=== PATIENT | female | born 1965 | race Asian ===

== ENCOUNTER 2017-09-22 22:39 | Emergency (ER) | payer SELFPAY ==
[~2017-09-22] VITALS: Ht 167.6 cm; Wt 49.0 kg
[~2017-09-22 22:39] MED LIST: ALBU8.5H5 IH; BACTDS PO; BEN50 PO; CEPH-443 PO; CLIN-73 PO; EPIN0.3P4 INJ; HYDR-3498 PO; LEVO50TA71 PO; METF500T4 PO; NAPR-688 PO; OMEP40CA6 PO; SIMV20TA2 PO
[2017-09-22 23:18] VITALS: Ht 167.6 cm; Wt 49.0 kg
== END 2017-09-23 15:26 | disposition left against medical advice (07) ==
LOC: FTE 22:39
DX: Z53.21 Procedure and treatment not carried out due to patient leaving prior to being seen by health care provider (principal)

== ENCOUNTER 2018-02-28 22:00 | Emergency (ER) | END 2018-03-01 00:32 | disposition home or self-care (01) ==

== ENCOUNTER 2018-10-05 05:30 | Inpatient (IN) | payer OTHER ==
[~2018-10-05] VITALS: Ht 154.9 cm; Wt 50.3 kg
[2018-10-05] VITALS (24 sets, daily range): BP systolic 123–159; BP diastolic 44–80; PULSE 82–114; RESP 10–20; Ht 154.9 cm; Wt 50.3 kg
[~2018-10-05 05:30] MED LIST changes: -CLIN-73 PO; +CLIN300C10 PO; +METF500T24 PO; -METF500T4 PO
[2018-10-05] MEDS ORDERED: ADV10050 INHALATION (06:46)
[2018-10-05] MEDS ORDERED: TRAM50TA PO (06:47)
[2018-10-05] MEDS ORDERED: SIMV20TA PO (06:47)
[2018-10-05] MEDS ORDERED: LEVO88TA PO (06:47)
[2018-10-05] MEDS ORDERED: POLYMYXIN/BACITRACIN 1L IRRIG ONE (06:57)
[2018-10-05] MEDS ORDERED: ROCURONIUM 50 MG INJ ONE ×2 (07:00→14:12)
[2018-10-05] MEDS ORDERED: SEVOFLURANE 15 MIN ONE (07:00)
[2018-10-05] MEDS ORDERED: BUPIVACAINE 0.5% (SDV) 30 ML INJ ONE (07:01)
[2018-10-05] MEDS ORDERED: THROMBIN 5000 UNIT VIAL ONE ×5 (07:02→10:02)
[2018-10-05] MEDS ORDERED: GELATIN SIZE 100 SPONGE ONE (07:02)
[2018-10-05] MEDS ORDERED: POVIDONE IODINE 10% 28.4 GM OINT ONE (07:03)
[2018-10-05] MEDS ORDERED: LIDOCAINE 1%/EPI 30 ML INJ ONE (07:09)
[2018-10-05] MEDS ORDERED: HEPARIN 1000 UNITS/ML 10 ML INJ ONE (07:11)
--- NOTE | 2018-10-05 07:35 | PREAC ---
Date/Time of Note Date/Time of Note DATE: 10/05/18 TIME: 07:32 Anesthesia Eval and Record Evaluation Time Pre-Procedure Interview DATE: 10/05/18 TIME: 07:32 Age 52 Sex female NPO: 8 hrs Preoperative diagnosis C1-C3 fracture Planned procedure C1-C3 posterior Fusion Past Medical History Past Medical History: None Cardio: Dyslipidemia Endo: Diabetes, Hypothyroid Surgery & Anesthesia Issues No known issue Meds Anticoagulation: No Beta Anne within 24 hr: No Reason Beta Anne not given: Pt. not on B-Anne Reported Medications Simvastatin* (Zocor*) 20 Mg Tablet, 20 MG PO QHS, #30 TAB 10/05/18 Levothyroxine Sodium* (Synthroid*) 88 Mcg Tablet, 88 MCG PO BEFORE BREAKFAST, #30 TAB 10/05/18 Tramadol Hcl* (Ultram*) 50 Mg Tablet, 50 MG PO Q6H PRN for PAIN, TAB 10/05/18 Salmeterol Xinaf-Fluticasone* (Advair*) 100/50 Diskus Inhaler, 1 INH INHALATION BID, #1 INHALER 10/05/18 Discontinued Reported Medications Omeprazole* (Omeprazole*) 40 Mg Capsule.dr, 40 MG PO DAILY, CAP 02/12/15 Metformin Hcl* (Metformin Hcl*) 500 Mg Tablet, 500 MG PO WITH BREAKFAST, TAB 02/12/15 Albuterol Sulfate* (Albuterol Sulfate* HFA) 8.5 Gm Hfa.aer.ad, 2 PUFF IH Q4H PRN for WHEEZING AND SOB, EA 11/27/14 Simvastatin (Simvastatin) 20 Mg Tablet, 20 MG PO HS, TAB 11/27/14 Levothyroxine Sodium* (Levoxyl*) 50 Mcg Tablet, 50 MCG PO AC BREAKFAST, TAB 11/27/14 Discontinued Scripts Diphenhydramine Hcl* (Benadryl*) 50 Mg Cap, 50 MG PO Q6H PRN for ITCHING/RASH, #30 CAP Prov:NARA BURCH ASSURANCE SPECIALIST 06/09/16 Clindamycin Hcl* (Clindamycin Hcl*) 300 Mg Capsule, 300 MG PO TID for 10 Days, CAP Prov:NARA BURCH NP 06/09/16 Epinephrine (Epipen 2-Bandar) 0.3 Mg/0.3 Ml Pen.injctr, 1 EA INJ ONCE PRN for ALLERGIC REACTION, #1 EA Prov:NARA BURCH NP 01/21/16 Diphenhydramine Hcl* (Benadryl*) 50 Mg Cap, 50 MG PO Q6H PRN for ITCHING, #30 CAP Prov:NARA BURCH ASSURANCE SPECIALIST 01/21/16 Clindamycin Hcl* (Clindamycin Hcl*) 300 Mg Capsule, 300 MG PO TID for 10 Days, CAP Prov:NARA BURCH ASSURANCE SPECIALIST 01/21/16 Hydrocodone Bit-Acetaminophen* ([place]*) 5-325 Mg Tab, 1 TAB PO Q6 PRN for PAIN, #7 TAB Prov:SAM MARY 01/14/16 Naproxen* (Naproxen*) 500 Mg Tablet, 500 MG PO BID PRN for PAIN, #20 TAB Prov:SAM MARY 01/14/16 Cephalexin* (Keflex*) 500 Mg Capsule, 500 MG PO Q8, #30 CAP Prov:SAM MARY 01/14/16 Sulfamethoxazole-Trimethoprim* (Bactrim* DS) 800-160 Mg Tab, 1 TAB PO BID, #20 TAB Prov:SAM MARY 01/14/16 Meds reviewed: Yes Allergies Coded Allergies: cephalexin (Verified Allergy, Unknown, rash, 10/05/18) sulfamethoxazole (Verified Allergy, Unknown, rash, 10/05/18) trimethoprim (Verified Allergy, Unknown, rash, 10/05/18) acetaminophen (Verified Adverse Reaction, Intermediate, vomiting, 10/05/18) hydrocodone (Verified Adverse Reaction, Intermediate, vomiting, 10/05/18) Allergies Reviewed: Yes Labs/Studies Labs Reviewed: Reviewed by anesthesiologist test: Negative Studies: ECG Pre-procedure Exam Last vitals Vital Signs Date Temp Pulse Resp B/P (MAP) Pulse Ox O2 O2 Flow FiO2 Time Delivery Rate 10/05/18 98.1 92 18 129/44 99 Room Air 07:06 (72) Airway: Adequate mouth opening, Adequate thyromental dist Mallampati: Mallampati III Teeth: Normal Lung: Normal Heart: Normal ASA Physical Status ASA physical status: 3 Emergency: None Planned Anesthetic General/MAC: ETT Planned Pain Management Parenteral pain med Pre-operative Attestations Prior to commencing anesthesia and surgery, the patient was re-evaluated, there was verification of: *The patient's identity *The results of appropriate recent lab work and preoperative vital signs *The above evaluation not changing prior to induction *Anesthetic plan, risk benefits, alternative and complications discussed with patient/family; questions answered; patient/family understands, accepts and wishes to proceed. TAN PRADO MD Oct 05, 2018 07:35
[2018-10-05] MEDS ORDERED: MIDAZOLAM 1 MG/ML 2 ML INJ ONE (07:51)
--- NOTE | 2018-10-05 07:52 | HPN ---
Date/Time of Note Date/Time of Note DATE: 10/05/18 TIME: 07:51 Interval H&P Admission Note Pt. seen H&P reviewed: Systems changes noted below Patient remains in halo placed by another neurosurgeon. Can ambulate in halo but with some difficulty and imbalance. Risks and benefits of the surgery again explained in detail to the patient and family. KENYON ROD MD Oct 05, 2018 07:52
--- NOTE | 2018-10-05 07:53 | CONS ---
Date/Time of Note Date/Time of Note DATE: 10/05/18 TIME: 07:52 Assessment/Plan Assessment/Plan Assessment/Plan please see the operative report under indications. Results 24hrs Laboratory Tests Test 10/05/18 06:23 Bedside Glucose 97 KENYON ROD MD Oct 05, 2018 07:53
[2018-10-05] MEDS ORDERED: VANCOMYCIN 1 GM (PMX) 250 ML ONE (08:14)
[2018-10-05] MEDS ORDERED: DEXAMETHASONE 4 MG/ML 5 ML INJ ONE (09:41)
[2018-10-05] MEDS ORDERED: VANCOMYCIN 1 GM INJ ONE (11:33)
[2018-10-05] MEDS ORDERED: PHENYLephrine (100 MCG/ML) 10ML SYG ONE (12:19)
[2018-10-05] MEDS ORDERED: LIDOCAINE 2% (SDV) 5 ML INJ ONE (14:12)
[2018-10-05] MEDS ORDERED: SUCCINYLCHOLINE CHLORIDE 100 MG/5 ML SYG IV ONE (14:12)
[2018-10-05] MEDS ORDERED: PROPOFOL 20 ML ONE (14:12)
[2018-10-05] MEDS ORDERED: ONDANSETRON 4 MG INJ ONE (15:25)
[2018-10-05] MEDS ORDERED: CEFAZOLIN 1 GM INJ ONE (15:39)
[2018-10-05] MEDS ORDERED: MEPERIDINE 25 MG INJ IV PRN (16:00)
[2018-10-05] MEDS ORDERED: LABETALOL HCL 20MG INJ IV PRN (16:00)
[2018-10-05] MEDS ORDERED: hydrALAzine 20 MG INJ IV PRN (16:00)
[2018-10-05] MEDS ORDERED: ONDANSETRON 4 MG INJ IV PRN ×2 (16:00→16:30)
[2018-10-05] MEDS ORDERED: METOCLOPRAMIDE 10 MG INJ IV PRN (16:00)
[2018-10-05] MEDS ORDERED: DIPHENHYDRAMINE 50 MG INJ IV PRN (16:00)
--- NOTE | 2018-10-05 16:02 | PAC ---
Date/Time of Note Date/Time of Note DATE: 10/05/18 TIME: 16:01 Post-Anesthesia Notes Post-Anesthesia Note Last documented vital signs Vital Signs Date Temp Pulse Resp B/P (MAP) Pulse Ox O2 O2 Flow FiO2 Time Delivery Rate 10/05/18 98.1 92 18 129/44 99 Room Air 07:06 (72) Activity: WNL Respiratory function: WNL Cardiovascular function: WNL Mental status: Baseline Pain reasonably controlled: Yes Hydration appropriate: Yes Nausea/Vomiting absent: Yes Comments P:138/77,pulse:104, spo2:100%, T:98,9 TAN PRADO MD Oct 05, 2018 16:02
[2018-10-05] MEDS ORDERED: MEPERIDINE 25 MG INJ ONE (16:19)
[2018-10-05] MEDS ORDERED: METOCLOPRAMIDE 10 MG INJ ONE (16:20)
[2018-10-05] MEDS ORDERED: NALOXONE (0.4 MG/ML) INJ IV PRN (16:30)
[2018-10-05] MEDS ORDERED: BISACODYL 10 MG SUPP PR PRN (16:30)
--- NOTE | 2018-10-05 16:42 | SIPON ---
Date/Time of Note Date/Time of Note DATE: 10/05/18 TIME: 16:39 Operative Report Preoperative Diagnosis Displaced Type II Odontoid fracture, C2 pedicle Fracture with facet dislocation Postoperative Diagnosis Same as above Operation/Procedure Performed Occiput to C3 posterior instrumented fusion, Partial C1 laminectomy, autologous and allo bone graft placement, removal of prior halo Surgeon see signature line family services assistant None Anesthesia: general Estimated blood loss: other (400cc) Transfusion Required cell saver: 400 cc Specimen None Grafts/Implants see operative report Complications none KENYON ROD MD Oct 05, 2018 16:42
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
[2018-10-05] MEDS: FENTAnyl 50 MCG/ML VIAL IV PRN ×2 (16:51→16:54)
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
[2018-10-05] MEDS ORDERED: morphine SULFATE/PF (2 MG/2 ML) SYG IV PRN (18:00)
[2018-10-05] MEDS ORDERED: traMADol 50 MG TAB PO PRN (18:00)
[2018-10-05] MEDS: D5W-0.45 NACL + KCL 20 MEQ 1,000 ML IV SCH (18:09)
[2018-10-05] MEDS: VANCOMYCIN 1 GM (PMX) 250 ML IVPB SCH (18:10)
[2018-10-05] MEDS ORDERED: ALBUTEROL/IPRATROPIUM (NEB) 3 ML AMP HHN PRN (18:30)
[2018-10-05] MEDS: DOCUSATE SODIUM 100 MG CAP PO SCH (20:22)
[2018-10-05] MEDS: ATORVASTATIN 10 MG TAB PO SCH (20:22)
[2018-10-05] MEDS: HYDROmorphONE 0.5 MG/0.5 ML SYG IV PRN ×2 (20:23→23:32)
[2018-10-05] MEDS: NEOMYC/POLYMYX/BACIT 30 GM OINT TOP SCH (20:23)
[2018-10-06] MEDS: D5W-0.45 NACL + KCL 20 MEQ 1,000 ML IV SCH ×3 (03:05→16:31)
[2018-10-06] MEDS: HYDROmorphONE 0.5 MG/0.5 ML SYG IV PRN ×7 (03:06→22:12)
[2018-10-06] MEDS: VANCOMYCIN 1 GM (PMX) 250 ML IVPB SCH (04:36)
[2018-10-06] MEDS: PANTOPRAZOLE 40 MG INJ IV SCH (05:27)
[2018-10-06] MEDS: LEVOTHYROXINE 88 MCG TAB PO SCH (06:42)
[2018-10-06 07:56] VITALS: BP 116/56; PULSE 112; RESP 18
[2018-10-06] MEDS: DOCUSATE SODIUM 100 MG CAP PO SCH ×2 (08:49→20:28)
[2018-10-06] MEDS: FLUTICASONE/VILANTEROL 100-25 INH SCH (08:49)
[2018-10-06] MEDS: NEOMYC/POLYMYX/BACIT 30 GM OINT TOP SCH ×2 (08:49→20:30)
[2018-10-06] MEDS: CYCLOBENZAPRINE 10 MG TAB PO PRN (12:20)
[2018-10-06] MEDS: traMADol 50 MG TAB PO PRN ×2 (13:25→20:28)
[2018-10-06 15:05] VITALS: BP 121/61; PULSE 110; RESP 18
--- NOTE | 2018-10-06 15:29 | PN ---
Date/Time of Note Date/Time of Note DATE: 10/06/18 TIME: 15:27 Assessment/Plan VTE Prophylaxis Risk score (from Ns)>0 risk: 3 SCD applied (from Ns): Yes Pharmacological prophylaxis: NA/contraindicated Pharm contraindication: surgical contra Lines/Catheters IV [facility] Type (from [facility]): Peripheral IV Urinary Cath still in place: Yes Reason Cath still needed: urinary retention Assessment/Plan Hospital Course Patient complains of generalized weakness, neck pain, dizziness when getting out of bed however was able to work with physical therapy. Patient's condition and plan of care discussed with patient and patient's daughter at the bedside. Assessment/Plan -Displaced Type II Odontoid fracture, C2 pedicle Fracture with facet dislocation. S/p occiput to C3 posterior instrumented fusion, Partial C1 laminectomy, autologous and allo bone graft placement, removal of prior halo by Dr Renae on 10/05/18. Continue IV fluids and postoperative antibiotics, cervical collar, pain management, physical therapy. -Hypothyroidism, continue Synthroid -Hyperlipidemia, continue statin. -Asthma, continue Brio Ellipta, breathing treatment as needed for shortness of breath. Further recommendations based on clinical course. Plan of care discussed with Dr. Arriola. Result Diagram: 10/06/1844710/06/18447 Results 24hrs Laboratory Tests Test 10/05/18 15:57 10/06/18 03:00 10/06/18 04:48 10/06/18 06:40 Bedside Glucose 140 Urine Color YELLOW Urine Clarity CLEAR Urine pH 6.0 Urine Specific 1.013 [place] Urine Ketones NEGATIVE Urine Nitrite NEGATIVE Urine Bilirubin NEGATIVE Urine Urobilinogen NEGATIVE Urine Leukocyte NEGATIVE Esterase Urine Microscopic RBC 8 H Urine Microscopic WBC 2 Urine Hemoglobin 2+ H Urine Glucose NEGATIVE Urine Total Protein NEGATIVE White Blood Count 14.8 #H Red Blood Count 3.78 L Hemoglobin 11.4 L Hematocrit 34.3 L Mean Corpuscular 90.7 Volume Mean Corpuscular 30.2 Hemoglobin Mean Corpuscular 33.2 Hemoglobin Concent Red Cell Distribution 12.6 Width Platelet Count 393 Mean Platelet Volume 7.9 Immature Granulocytes 0.500 H % Neutrophils % 82.1 H Lymphocytes % 11.0 L Monocytes % 6.2 Eosinophils % 0.1 Basophils % 0.1 Nucleated Red Blood 0.0 Cells % Immature Granulocytes 0.080 H # Neutrophils # 12.1 H Lymphocytes # 1.6 Monocytes # 0.9 Eosinophils # 0.0 Basophils # 0.0 Nucleated Red Blood 0.0 Cells # Sodium Level 137 Potassium Level 4.4 Chloride Level 100 Carbon Dioxide Level 29 Anion Gap 8 Blood Urea Nitrogen 10 Creatinine 0.58 Est Glomerular > 60 Filtrat Rate mL/min Glucose Level 151 Calcium Level 8.7 Triglycerides Level 207 H Cholesterol Level 223 H LDL Cholesterol, 146 Calculated HDL Cholesterol 36 L Cholesterol/HDL Ratio 6.1 Lab Scanned Report REFERENCE LAB Exam/Review of Systems Vital Signs Vitals Vital Signs Date Temp Pulse Resp B/P (MAP) Pulse Ox O2 O2 Flow FiO2 Time Delivery Rate 10/06/18 97.9 110 18 121/61 100 Nasal 15:05 (81) Cannula 10/06/18 2.0 14:33 Intake and Output 10/05/18 10/05/18 10/06/18 1414:59 22:59 06:59 IntakeIntake Total 2450 ml 1930 ml OutputOutput Total 800 ml 2800 ml BalanceBalance 1650 ml -870 ml Exam Constitutional: alert Neck: other (Status post surgical surgery, soft cervical collar) Cardiovascular: nl pulses Gastrointestinal: soft, non-tender Genitourinary - Female: other (Gtz catheter) Musculoskeletal: nl extremities to inspection Extremities: normal pulses Medications Medications Current Medications Potassium Chloride/Dextrose/ Sod Cl 1,000 ml @ 100 mls/hr Q10H IV Last administered on 10/06/18at 03:05; Admin Dose 100 MLS/HR; Start 10/05/18 at 16:28 Tramadol HCl (Ultram) 50 mg Q4H PRN PO PAIN LEVEL 1-5; Start 10/05/18 at 16:30 Tramadol HCl (Ultram) 100 mg Q4H PRN PO PAIN LEVEL 6-10 Last administered on 10/06/18at 13:25; Admin Dose 100 MG; Start 10/05/18 at 16:30 Ondansetron HCl (Zofran Inj) 4 mg Q6H PRN IV NAUSEA AND/OR VOMITING; Start 10/05/18 at 16:30 Bisacodyl (Dulcolax Supp) 10 mg DAILY PRN [place] CONSTIPATION; Start 10/05/18 at 16:30 Docusate Sodium (Colace) 100 mg BID PO ; Start 10/05/18 at 21:00 Pantoprazole (Protonix Iv) 40 mg DAILY@06 IV Last administered on 10/06/18at 05:27; Admin Dose 40 MG; Start 10/06/18 at 06:00 Cyclobenzaprine HCl (Flexeril) 5 mg TID PRN PO MUSCLE SPASMS Last administered on 10/06/18at 12:20; Admin Dose 5 MG; Start 10/05/18 at 16:30 Naloxone HCl (Narcan) 0.2 mg Q2M PRN IV DECREASED REPIRATORY RATE; Start 10/05/18 at 16:30 Neomycin/ Polymyxin/ Bacitracin (Neosporin Topical Oint) 1 applic BID TOP ; Start 10/05/18 at 21:00 Levothyroxine Sodium (Synthroid) 88 mcg BEFORE BREAKFAST PO Last administered on 10/06/18at 06:42; Admin Dose 88 MCG; Start 10/06/18 at 07:00 Fluticasone/ Vilanterol (Breo Ellipta 100-25 Mcg Inh) 1 inh DAILY INH Last administered on 10/06/18at 08:49; Admin Dose 1 INH; Start 10/06/18 at 09:00 Atorvastatin Calcium (Lipitor) 10 mg DAILY@21 PO ; Start 10/05/18 at 21:00 Albuterol/ Ipratropium (Duoneb) 3 ml Q4H RESP THERAPY PRN HHN SHORTNESS OF BREATH; Start 10/05/18 at 18:30 Hydromorphone HCl (Dilaudid) 0.5 mg Q2H PRN IV SEVERE PAIN LEVEL 7-10; Start 10/06/18 at 15:30 EARL YOUSIF Oct 06, 2018 15:29
--- NOTE | 2018-10-06 19:35 | PN ---
Date/Time of Note Date/Time of Note DATE: 10/06/18 TIME: 19:35 Assessment/Plan VTE Prophylaxis Risk score (from Ns)>0 risk: 8 SCD applied (from Ns): Yes Pharmacological prophylaxis: NA/contraindicated Pharm contraindication: surgical contra Lines/Catheters IV Catheter Type (from Nrsg): Peripheral IV Central line still needed: No Urinary Cath still in place: No Assessment/Plan Assessment/Plan Date of progress note: 10/06/2018 The patient is status post occipitocervical instrumented fusion postop day 1. The patient's daughter is at her bedside. The patient overall is doing better today than she did yesterday postop and her postoperative pain is well controlled. The patient is very pleased to not have the halo on her anymore. With the help of the patient's nurse, we have set the patient up to the edge of the chair and she has taken several steps with assistance. Her incision is clean dry and intact. The patient still has some nausea same as she did preoperatively. She does not have any weakness or numbness of her upper and lower extremity's. The patient will need to receive physical therapy postoperatively. Her family is very concerned about her care postoperatively. If there is a need the patient can be set up with either home health nursing or to receive care at a rehab facility before going home. This can be further determined with the evaluation of physical therapy. The patient and her family have had all her questions answered. Result Diagram: 10/06/18 0448 10/06/18 0448 Results 24hrs Laboratory Tests Test 10/06/18 03:00 10/06/18 04:48 10/06/18 06:40 Urine Color YELLOW Urine Clarity CLEAR Urine pH 6.0 Urine Specific [place] 1.013 Urine Ketones NEGATIVE Urine Nitrite NEGATIVE Urine Bilirubin NEGATIVE Urine Urobilinogen NEGATIVE Urine Leukocyte Esterase NEGATIVE Urine Microscopic RBC 8 H Urine Microscopic WBC 2 Urine Hemoglobin 2+ H Urine Glucose NEGATIVE Urine Total Protein NEGATIVE White Blood Count 14.8 #H Red Blood Count 3.78 L Hemoglobin 11.4 L Hematocrit 34.3 L Mean Corpuscular Volume 90.7 Mean Corpuscular Hemoglobin 30.2 Mean Corpuscular Hemoglobin Concent 33.2 Red Cell Distribution Width 12.6 Platelet Count 393 Mean Platelet Volume 7.9 Immature Granulocytes % 0.500 H Neutrophils % 82.1 H Lymphocytes % 11.0 L Monocytes % 6.2 Eosinophils % 0.1 Basophils % 0.1 Nucleated Red Blood Cells % 0.0 Immature Granulocytes # 0.080 H Neutrophils # 12.1 H Lymphocytes # 1.6 Monocytes # 0.9 Eosinophils # 0.0 Basophils # 0.0 Nucleated Red Blood Cells # 0.0 Sodium Level 137 Potassium Level 4.4 Chloride Level 100 Carbon Dioxide Level 29 Anion Gap 8 Blood Urea Nitrogen 10 Creatinine 0.58 Est Glomerular Filtrat Rate mL/min > 60 Glucose Level 151 Calcium Level 8.7 Triglycerides Level 207 H Cholesterol Level 223 H LDL Cholesterol, Calculated 146 HDL Cholesterol 36 L Cholesterol/HDL Ratio 6.1 Lab Scanned Report REFERENCE LAB KENYON ROD MD Oct 06, 2018 19:35
[2018-10-06] MEDS: ATORVASTATIN 10 MG TAB PO SCH (20:27)
[2018-10-06 20:34] VITALS: BP 120/58; PULSE 101; RESP 20
[2018-10-07] MEDS: HYDROmorphONE 0.5 MG/0.5 ML SYG IV PRN ×4 (01:55→22:01)
[2018-10-07] MEDS: D5W-0.45 NACL + KCL 20 MEQ 1,000 ML IV SCH ×3 (02:00→21:22)
[2018-10-07 02:32] VITALS: BP 118/60; PULSE 100; RESP 17
[2018-10-07] MEDS: PANTOPRAZOLE 40 MG INJ IV SCH (06:54)
[2018-10-07] MEDS: LEVOTHYROXINE 88 MCG TAB PO SCH (06:54)
[2018-10-07] MEDS: CYCLOBENZAPRINE 10 MG TAB PO PRN (06:55)
[2018-10-07] MEDS: traMADol 50 MG TAB PO PRN (06:57)
[2018-10-07 07:24] VITALS: BP 120/60; PULSE 101; RESP 18
[2018-10-07] MEDS: NEOMYC/POLYMYX/BACIT 30 GM OINT TOP SCH ×2 (08:44→21:22)
[2018-10-07] MEDS: DOCUSATE SODIUM 100 MG CAP PO SCH ×2 (08:45→21:22)
[2018-10-07] MEDS: FLUTICASONE/VILANTEROL 100-25 INH SCH (08:45)
--- NOTE | 2018-10-07 17:11 | PN ---
Date/Time of Note Date/Time of Note DATE: 10/07/18 TIME: 17:11 Assessment/Plan VTE Prophylaxis Risk score (from Ns)>0 risk: 6 SCD applied (from Ns): Yes Pharmacological prophylaxis: NA/contraindicated Pharm contraindication: surgical contra Lines/Catheters IV [facility] Type (from [facility]): Peripheral IV Urinary Cath still in place: Yes Reason Cath still needed: urinary retention Assessment/Plan Hospital Course Patient with increased leukocytosis to compare to yesterday, no fever, will check x-ray and urinalysis. Encouraged to use incentive spirometer patient generally weak however able to work with PT today. Assessment/Plan -Displaced Type II Odontoid fracture, C2 pedicle Fracture with facet dislocation. S/p occiput to C3 posterior instrumented fusion, Partial C1 laminectomy, autologous and allo bone graft placement, removal of prior halo by Dr Renae on 10/05/18. Continue cervical collar, pain management, physical therapy. -Hypothyroidism, continue Synthroid -Hyperlipidemia, continue statin. -Asthma, continue Brio Ellipta, breathing treatment as needed for shortness of breath. Further recommendations based on clinical course. Plan of care discussed with Dr. Arriola. Result Diagram: 10/07/184 10/07/18 0424 Results 24hrs Laboratory Tests Test 10/07/18 04:24 White Blood Count 20.1 #H Red Blood Count 3.85 L Hemoglobin 11.3 L Hematocrit 34.0 L Mean Corpuscular Volume 88.3 Mean Corpuscular Hemoglobin 29.4 Mean Corpuscular Hemoglobin Concent 33.2 Red Cell Distribution Width 12.1 Platelet Count 382 Mean Platelet Volume 7.9 Immature Granulocytes % 0.600 H Neutrophils % 87.1 H Lymphocytes % 5.6 L Monocytes % 6.6 Eosinophils % 0.0 Basophils % 0.1 Nucleated Red Blood Cells % 0.0 Immature Granulocytes # 0.120 H Neutrophils # 17.5 H Lymphocytes # 1.1 Monocytes # 1.3 H Eosinophils # 0.0 Basophils # 0.0 Nucleated Red Blood Cells # 0.0 Sodium Level 131 L Potassium Level 3.8 Chloride Level 94 L Carbon Dioxide Level 27 Anion Gap 10 Blood Urea Nitrogen 5 L Creatinine 0.47 Est Glomerular Filtrat Rate mL/min > 60 Glucose Level 169 Calcium Level 8.7 Exam/Review of Systems Vital Signs Vitals Vital Signs Date Temp Pulse Resp B/P (MAP) Pulse Ox O2 O2 Flow FiO2 Time Delivery Rate 10/07/18 3.0 16:01 10/07/18 98.5 101 18 120/60 99 Nasal 07:24 (80) Cannula Intake and Output 10/06/18 10/06/18 10/07/18 1515:00 23:00 07:00 IntakeIntake Total 1020 ml 1430 ml OutputOutput Total 1500 ml 1200 ml BalanceBalance -480 ml 230 ml Exam Constitutional: alert Neck: other (Status post surgical surgery, soft cervical collar) Cardiovascular: nl pulses Gastrointestinal: soft, non-tender Musculoskeletal: nl extremities to inspection Extremities: normal pulses Medications Medications Current Medications Potassium Chloride/Dextrose/ Sod Cl 1,000 ml @ 100 mls/hr Q10H IV Last administered on 10/07/18at 11:40; Admin Dose 100 MLS/HR; Start 10/05/18 at 16:28 Tramadol HCl (Ultram) 50 mg Q4H PRN PO PAIN LEVEL 1-5 Last administered on 09/28 at 06:57; Admin Dose 50 MG; Start 10/05/18 at 16:30 Tramadol HCl (Ultram) 100 mg Q4H PRN PO PAIN LEVEL 6-10 Last administered on 10/06/18at 20:28; Admin Dose 100 MG; Start 10/05/18 at 16:30 Ondansetron HCl (Zofran Inj) 4 mg Q6H PRN IV NAUSEA AND/OR VOMITING; Start 10/05/18 at 16:30 Bisacodyl (Dulcolax Supp) 10 mg DAILY PRN [place] CONSTIPATION; Start 10/05/18 at 16:30 Docusate Sodium (Colace) 100 mg BID PO Last administered on 10/07/18at 08:45; Admin Dose 100 MG; Start 10/05/18 at 21:00 Pantoprazole (Protonix Iv) 40 mg DAILY@06 IV Last administered on 10/07/18at 06:54; Admin Dose 40 MG; Start 10/06/18 at 06:00 Cyclobenzaprine HCl (Flexeril) 5 mg TID PRN PO MUSCLE SPASMS Last administered on 10/07/18at 06:55; Admin Dose 5 MG; Start 10/05/18 at 16:30 Naloxone HCl (Narcan) 0.2 mg Q2M PRN IV DECREASED REPIRATORY RATE; Start 10/05/18 at 16:30 Neomycin/ Polymyxin/ Bacitracin (Neosporin Topical Oint) 1 applic BID TOP Last administered on 10/07/18 08:44; Admin Dose 1 APPLIC; Start 10/05/18 at 21:00 Levothyroxine Sodium (Synthroid) 88 mcg BEFORE BREAKFAST PO Last administered on 10/07/18 06:54; Admin Dose 88 MCG; Start 10/06/18 at 07:00 Fluticasone/ Vilanterol (Breo Ellipta 100-25 Mcg Inh) 1 inh DAILY INH Last administered on 10/07/18 08:45; Admin Dose 1 INH; Start 10/06/18 at 09:00 Atorvastatin Calcium (Lipitor) 10 mg DAILY@21 PO Last administered on 10/06/18at 20:27; Admin Dose 10 MG; Start 10/05/18 at 21:00 Albuterol/ Ipratropium (Duoneb) 3 ml Q4H RESP THERAPY PRN HHN SHORTNESS OF JERRI TH; Start 10/05/18 at 18:30 Hydromorphone HCl (Dilaudid) 0.5 mg Q2H PRN IV SEVERE PAIN LEVEL 7-10 Last administered on 10/07/18 14:21; Admin Dose 0.5 MG; Start 10/06/18 at 15:30 EARL YOUSIF Oct 07, 2018 17:11
[2018-10-07 20:03] VITALS: BP 133/61; PULSE 99; RESP 18
[2018-10-07] MEDS: ATORVASTATIN 10 MG TAB PO SCH (21:21)
[2018-10-08] MEDS: HYDROmorphONE 0.5 MG/0.5 ML SYG IV PRN ×5 (01:44→20:43)
[2018-10-08 01:50] VITALS: BP 118/55; PULSE 101; RESP 18
[2018-10-08] MEDS: LEVOTHYROXINE 88 MCG TAB PO SCH (06:11)
[2018-10-08] MEDS: PANTOPRAZOLE 40 MG INJ IV SCH (06:11)
[2018-10-08 07:36] VITALS: BP 123/58; PULSE 90; RESP 18
[2018-10-08] MEDS: DOCUSATE SODIUM 100 MG CAP PO SCH ×2 (08:42→21:00)
[2018-10-08] MEDS: NEOMYC/POLYMYX/BACIT 30 GM OINT TOP SCH ×2 (08:43→20:44)
[2018-10-08] MEDS: traMADol 50 MG TAB PO PRN (08:43)
[2018-10-08] MEDS: FLUTICASONE/VILANTEROL 100-25 INH SCH (08:43)
[2018-10-08 14:00] VITALS: BP 122/60; PULSE 89; RESP 18
--- NOTE | 2018-10-08 14:37 | PN ---
Date/Time of Note Date/Time of Note DATE: 10/08/18 TIME: 14:36 Assessment/Plan VTE Prophylaxis Risk score (from [facility])>0 risk: 7 SCD applied (from [facility]): Yes SCD contraindicated: other Pharmacological prophylaxis: other Pharm contraindication: other Lines/Catheters IV [facility]ter Type (from [facility]): Peripheral IV Urinary Cath still in place: Yes Reason Cath still needed: urinary retention Assessment/Plan Result Diagram: 10/08/18 0431 10/08/18 0431 Results 24hrs Laboratory Tests Test 10/08/18 00:14 10/08/18 04:31 Urine Color STRAW Urine Clarity CLEAR Urine pH 7.0 Urine Specific [place] 1.008 Urine Ketones NEGATIVE Urine Nitrite NEGATIVE Urine Bilirubin NEGATIVE Urine Urobilinogen NEGATIVE Urine Leukocyte Esterase NEGATIVE Urine Microscopic RBC 33 H Urine Microscopic WBC 1 Urine Hemoglobin 3+ H Urine Glucose 1+ H Urine Total Protein NEGATIVE White Blood Count 17.4 H Red Blood Count 3.79 L Hemoglobin 11.2 L Hematocrit 32.9 L Mean Corpuscular Volume 86.8 Mean Corpuscular Hemoglobin 29.6 Mean Corpuscular Hemoglobin Concent 34.0 Red Cell Distribution Width 12.0 Platelet Count 370 Mean Platelet Volume 7.9 Immature Granulocytes % 0.500 H Neutrophils % 83.6 H Lymphocytes % 9.0 L Monocytes % 6.7 Eosinophils % 0.1 Basophils % 0.1 Nucleated Red Blood Cells % 0.0 Immature Granulocytes # 0.090 H Neutrophils # 14.5 H Lymphocytes # 1.6 Monocytes # 1.2 H Eosinophils # 0.0 Basophils # 0.0 Nucleated Red Blood Cells # 0.0 Sodium Level 134 L Potassium Level 3.7 Chloride Level 95 L Carbon Dioxide Level 30 Anion Gap 9 Blood Urea Nitrogen 5 L Creatinine 0.48 Est Glomerular Filtrat Rate mL/min > 60 Glucose Level 137 Calcium Level 8.7 Exam/Review of Systems Vital Signs Vitals Vital Signs Date Temp Pulse Resp B/P (MAP) Pulse Ox O2 O2 Flow FiO2 Time Delivery Rate 10/08/18 98.0 90 18 123/58 95 Room Air 07:36 (79) 10/07/18 3.0 16:01 Intake and Output 10/07/18 10/07/18 10/08/18 1515:00 23:00 07:00 IntakeIntake Total 700 ml 500 ml 1000 ml OutputOutput Total 300 ml 1250 ml 2000 ml BalanceBalance 400 ml -750 ml -1000 ml Medications Medications Current Medications Tramadol HCl (Ultram) 50 mg Q4H PRN PO PAIN LEVEL 1-5 Last administered on 10/07/18 06:57; Admin Dose 50 MG; Start 10/05/18 at 16:30 Tramadol HCl (Ultram) 100 mg Q4H PRN PO PAIN LEVEL 6-10 Last administered on 10/08/18 08:43; Admin Dose 100 MG; Start 10/05/18 at 16:30 Ondansetron HCl (Zofran Inj) 4 mg Q6H PRN IV NAUSEA AND/OR VOMITING; Start 10/05/18 at 16:30 Bisacodyl (Dulcolax Supp) 10 mg DAILY PRN [place] CONSTIPATION; Start 10/05/18 at 16:30 Docusate Sodium (Colace) 100 mg BID PO Last administered on 10/07/18 21:22; Admin Dose 100 MG; Start 10/05/18 at 21:00 Pantoprazole (Protonix Iv) 40 mg DAILY@06 IV Last administered on 10/08/18 0 6:11; Admin Dose 40 MG; Start 10/06/18 at 06:00 Cyclobenzaprine HCl (Flexeril) 5 mg TID PRN PO MUSCLE SPASMS Last administered on 10/07/18 06:55; Admin Dose 5 MG; Start 10/05/18 at 16:30 Naloxone HCl (Narcan) 0.2 mg Q2M PRN IV DECREASED REPIRATORY RATE; Start 10/05/18 at 16:30 Neomycin/ Polymyxin/ Bacitracin (Neosporin Topical Oint) 1 applic BID TOP Last administered on 10/08/18 08:43; Admin Dose 1 APPLIC; Start 10/05/18 at 21:00 Levothyroxine Sodium (Synthroid) 88 mcg BEFORE BREAKFAST PO Last administered on 10/08/18 06:11; Admin Dose 88 MCG; Start 10/06/18 at 07:00 Fluticasone/ Vilanterol (Breo Ellipta 100-25 Mcg Inh) 1 inh DAILY INH Last administered on 10/08/18 08:43; Admin Dose 1 INH; Start 10/06/18 at 09:00 Atorvastatin Calcium (Lipitor) 10 mg DAILY@21 PO Last administered on 1/10/19at 21:21; Admin Dose 10 MG; Start 10/05/18 at 21:00 Albuterol/ Ipratropium (Duoneb) 3 ml Q4H RESP THERAPY PRN HHN SHORTNESS OF BREATH; Start 10/05/18 at 18:30 Hydromorphone HCl (Dilaudid) 0.5 mg Q2H PRN IV SEVERE PAIN LEVEL 7-10 Last administered on 10/08/18at 13:44; Admin Dose 0.5 MG; Start 10/06/18 at 15:30 KASHIF CANO Oct 08, 2018 14:37
[2018-10-08 19:20] VITALS: BP 131/61; PULSE 94; RESP 20
[2018-10-08] MEDS: ATORVASTATIN 10 MG TAB PO SCH (21:00)
[2018-10-09] MEDS: traMADol 50 MG TAB PO PRN ×6 (00:20→19:31)
[2018-10-09] MEDS: ATORVASTATIN 10 MG TAB PO SCH ×2 (00:20→21:40)
[2018-10-09 02:00] VITALS: BP 133/58; PULSE 89; RESP 20
[2018-10-09] MEDS: PANTOPRAZOLE 40 MG INJ IV SCH (06:09)
[2018-10-09] MEDS: LEVOTHYROXINE 88 MCG TAB PO SCH (06:09)
[2018-10-09 08:13] VITALS: BP 112/56; PULSE 87; RESP 18
[2018-10-09] MEDS: DOCUSATE SODIUM 100 MG CAP PO SCH ×2 (09:19→21:40)
[2018-10-09] MEDS: HYDROmorphONE 0.5 MG/0.5 ML SYG IV PRN (09:19)
[2018-10-09] MEDS: FLUTICASONE/VILANTEROL 100-25 INH SCH (09:19)
[2018-10-09] MEDS: NEOMYC/POLYMYX/BACIT 30 GM OINT TOP SCH ×2 (09:23→21:39)
--- NOTE | 2018-10-09 11:50 | PN ---
Date/Time of Note Date/Time of Note DATE: 10/09/18 TIME: 11:49 Assessment/Plan VTE Prophylaxis Risk score (from Nsg)>0 risk: 7 SCD applied (from Nsg): Yes Pharmacological prophylaxis: LMWH Lines/Catheters IV Catheter Type (from Nrsg): Saline Lock Urinary Cath still in place: Yes Reason Cath still needed: skin wounds contaminated by urine Assessment/Plan Hospital Course -Displaced Type II Odontoid fracture, C2 pedicle Fracture with facet dislocation. S/p occiput to C3 posterior instrumented fusion, Partial C1 laminectomy, autologous and allo bone graft placement, removal of prior halo by Dr Renae on 10/05/18. Continue cervical collar, pain management, physical therapy. -Hypothyroidism, continue Synthroid -Hyperlipidemia, continue statin. -Asthma, continue Brio Ellipta, breathing treatment as needed for shortness of breath. Result Diagram: 10/08/1843010/08/18 043 Subjective 24 Hr Interval Summary Free Text/Dictation Patient complain of neck and back pain Exam/Review of Systems Vital Signs Vitals Vital Signs Date Temp Pulse Resp B/P (MAP) Pulse Ox O2 O2 Flow FiO2 Time Delivery Rate 10/09/18 98.1 87 18 112/56 96 Room Air 08:13 (74) 10/07/18 3.0 16:01 Intake and Output 10/08/18 10/08/18 10/09/18 1414:59 22:59 06:59 IntakeIntake Total 600 ml BalanceBalance 600 ml Exam Constitutional: well developed Head: normocephalic, atraumatic Neck: supple Respiratory: diminished breath sounds Cardiovascular: regular rate and rhythm Gastrointestinal: soft, non-tender Extremities: normal pulses Medications Medications Current Medications Tramadol HCl (Ultram) 50 mg Q4H PRN PO PAIN LEVEL 1-5 Last administered on 10/09/18at 08:18; Admin Dose 50 MG; Start 10/05/18 at 16:30 Tramadol HCl (Ultram) 100 mg Q4H PRN PO PAIN LEVEL 6-10 Last administered on 10/09/18at 05:08; Admin Dose 100 MG; Start 10/05/18 at 16:30 Ondansetron HCl (Zofran Inj) 4 mg Q6H PRN IV NAUSEA AND/OR VOMITING; Start 10/05/18 at 16:30 Bisacodyl (Dulcolax Supp) 10 mg DAILY PRN [place] CONSTIPATION; Start 10/05/18 at 16:30 Docusate Sodium (Colace) 100 mg BID PO Last administered on 10/09/18 09:19; Admin Dose 100 MG; Start 10/05/18 at 21:00 Pantoprazole (Protonix Iv) 40 mg DAILY@06 IV Last administered on 10/09/18 06:09; Admin Dose 40 MG; Start 10/06/18 at 06:00 Cyclobenzaprine HCl (Flexeril) 5 mg TID PRN PO MUSCLE SPASMS Last administered on 10/07/18 06:55; Admin Dose 5 MG; Start 10/05/18 at 16:30 Naloxone HCl (Narcan) 0.2 mg Q2M PRN IV DECREASED REPIRATORY RATE; Start 10/05/18 at 16:30 Neomycin/ Polymyxin/ Bacitracin (Neosporin Topical Oint) 1 applic BID TOP Last administered on 10/09/18 09:23; Admin Dose 1 APPLIC; Start 10/05/18 at 21:00 Levothyroxine Sodium (Synthroid) 88 mcg BEFORE BREAKFAST PO Last administered on 10/09/18 06:09; Admin Dose 88 MCG; Start 10/06/18 at 07:00 Fluticasone/ Vilanterol (Breo Ellipta 100-25 Mcg Inh) 1 inh DAILY INH Last administered on 10/09/18 09:19; Admin Dose 1 INH; Start 10/06/18 at 09:00 Atorvastatin Calcium (Lipitor) 10 mg DAILY@21 PO Last administered on 10/09/18 00:20; Admin Dose 10 MG; Start 10/05/18 at 21:00 Albuterol/ Ipratropium (Duoneb) 3 ml Q4H RESP THERAPY PRN HHN SHORTNESS OF BREATH; Start 10/05/18 at 18:30 Hydromorphone HCl (Dilaudid) 0.5 mg Q2H PRN IV SEVERE PAIN LEVEL 7-10 Last administered on 10/09/18 09:19; Admin Dose 0.5 MG; Start 10/06/18 at 15:30 WHITNEY SHIELDS Oct 09, 2018 11:50
[2018-10-09 14:00] VITALS: BP 108/58; PULSE 85; RESP 18
[2018-10-09 19:25] VITALS: BP 115/58; PULSE 95; RESP 20
[2018-10-10] MEDS: traMADol 50 MG TAB PO PRN ×5 (01:55→23:12)
[2018-10-10 02:20] VITALS: BP 128/66; PULSE 84; RESP 20
[2018-10-10] MEDS: LEVOTHYROXINE 88 MCG TAB PO SCH (06:10)
[2018-10-10] MEDS: PANTOPRAZOLE 40 MG INJ IV SCH (06:10)
[2018-10-10 07:40] VITALS: BP 118/64; PULSE 87; RESP 16
[2018-10-10] MEDS: DOCUSATE SODIUM 10 MG/ML (10ML CUP) PO SCH ×2 (08:58→22:58)
[2018-10-10] MEDS: FLUTICASONE/VILANTEROL 100-25 INH SCH (08:58)
[2018-10-10] MEDS: NEOMYC/POLYMYX/BACIT 30 GM OINT TOP SCH ×2 (08:58→22:58)
--- NOTE | 2018-10-10 12:25 | PN ---
Date/Time of Note Date/Time of Note DATE: 10/10/18 TIME: 12:25 Assessment/Plan VTE Prophylaxis Risk score (from Nsg)>0 risk: 7 SCD applied (from Ns): Yes Pharmacological prophylaxis: LMWH Lines/Catheters IV Catheter Type (from Nrsg): Saline Lock Urinary Cath still in place: No Assessment/Plan Hospital Course -Displaced Type II Odontoid fracture, C2 pedicle Fracture with facet disloc ation. S/p occiput to C3 posterior instrumented fusion, Partial C1 laminectomy, autologous and allo bone graft placement, removal of prior halo by Dr Renae on 10/05/18. Continue cervical collar, pain management, physical therapy. -Hypothyroidism, continue Synthroid -Hyperlipidemia, continue statin. -Asthma, continue Brio Ellipta, breathing treatment as needed for shortness of breath. Result Diagram: 10/08/1843010/08/18430 Subjective 24 Hr Interval Summary Free Text/Dictation Patient states she rather go home rather to acute rehab Exam/Review of Systems Vital Signs Vitals Vital Signs Date Temp Pulse Resp B/P (MAP) Pulse Ox O2 O2 Flow FiO2 Time Delivery Rate 10/10/18 98.1 87 16 118/64 98 Room Air 07:40 (82) 10/07/18 3.0 16:01 Intake and Output 10/09/18 10/09/18 10/10/18 1515:00 23:00 07:00 IntakeIntake Total 400 ml 300 ml OutputOutput Total 400 ml 350 ml BalanceBalance 0 ml -50 ml Exam Constitutional: well developed Head: normocephalic, atraumatic Neck: supple Respiratory: diminished breath sounds Cardiovascular: regular rate and rhythm Gastrointestinal: soft, non-tender Extremities: normal pulses Medications Medications Current Medications Tramadol HCl (Ultram) 50 mg Q4H PRN PO PAIN LEVEL 1-5 Last administered on 10/09/18at 13:25; Admin Dose 50 MG; Start 10/05/18 at 16:30 Tramadol HCl (Ultram) 100 mg Q4H PRN PO PAIN LEVEL 6-10 Last administered on 10/10/18at 06:10; Admin Dose 100 MG; Start 10/05/18 at 16:30 Ondansetron HCl (Zofran Inj) 4 mg Q6H PRN IV NAUSEA AND/OR VOMITING; Start 10/05/18 at 16:30 Bisacodyl (Dulcolax Supp) 10 mg DAILY PRN [place] CONSTIPATION; Start 10/05/18 at 16:30 Pantoprazole (Protonix Iv) 40 mg DAILY@06 IV Last administered on 10/10/18 06:10; Admin Dose 40 MG; Start 10/06/18 at 06:00 Cyclobenzaprine HCl (Flexeril) 5 mg TID PRN PO MUSCLE SPASMS Last administered on 10/07/18 06:55; Admin Dose 5 MG; Start 10/05/18 at 16:30 Naloxone HCl (Narcan) 0.2 mg Q2M PRN IV DECREASED REPIRATORY RATE; Start 10/05/18 at 16:30 Neomycin/ Polymyxin/ Bacitracin (Neosporin Topical Oint) 1 applic BID TOP Last administered on 10/10/18 08:58; Admin Dose 1 APPLIC; Start 10/05/18 at 21:00 Levothyroxine Sodium (Synthroid) 88 mcg BEFORE BREAKFAST PO Last administered on 10/10/18 06:10; Admin Dose 88 MCG; Start 10/06/18 at 07:00 Fluticasone/ Vilanterol (Breo Ellipta 100-25 Mcg Inh) 1 inh DAILY INH Last administered on 10/10/18 08:58; Admin Dose 1 INH; Start 10/06/18 at 09:00 Atorvastatin Calcium (Lipitor) 10 mg DAILY@21 PO Last administered on 10/09/18 21:40; Admin Dose 10 MG; Start 10/05/18 at 21:00 Albuterol/ Ipratropium (Duoneb) 3 ml Q4H RESP THERAPY PRN HHN SHORTNESS OF B REATH; Start 10/05/18 at 18:30 Hydromorphone HCl (Dilaudid) 0.5 mg Q2H PRN IV SEVERE PAIN LEVEL 7-10 Last administered on 10/09/18 09:19; Admin Dose 0.5 MG; Start 10/06/18 at 15:30 Docusate Sodium (Colace Liquid Cup) 100 mg BID PO Last administered on 10/10/18 08:58; Admin Dose 100 MG; Start 10/10/18 at 09:00 WHITNEY SHIELDS Oct 10, 2018 12:25
[2018-10-10 14:51] VITALS: BP 129/63; PULSE 87; RESP 15
[2018-10-10 20:30] VITALS: BP 134/64; PULSE 84; RESP 18
--- NOTE | 2018-10-10 21:32 | CONS ---
Date/Time of Note Date/Time of Note DATE: 10/10/18 TIME: 21:31 Assessment/Plan Assessment/Plan The patient is now doing even better. Her nausea has now resolved and she is tolerating by mouth intake. She is voiding spontaneously. She has worked with physical therapy and moving around with the help of a front wheel walker to help with her stability. She does not have any gross weakness or numbness of her upper or lower extremities. Her daughter is at bedside. Her occipital cervical incision is clean dry and intact. With the help of the patient's nurse, we have got her out of bed and the patient is easily able to walk with the help of a front wheel walker. The occipitocervical dressing may be removed tomorrow with the help of the patient's nurse. I have also spoken with Dr. Herman's nurse practitioner regarding the patient's care and the patient may be discharged home from a neurosurgery perspective tomorrow. The patient is to follow-up with me in clinic in 2-3 weeks. She may shower but is to keep the wound clean dry and intact. The family is to apply Neosporin ointment to her incision twice a day. She is to wear the rigid cervical collar for the next 3-4 weeks. Even the small cervical collar that she has been fitted with still appears to be quite large given the patient's relatively short neck. I have asked the nurse to request for the patient to be fitted for a pediatric rigid cervical collar tomorrow prior to discharge. The patient and her daughter have had all their questions answered. The patient is overall very pleased with her progress so far. KENYON ROD MD Oct 10, 2018 21:32
[2018-10-10] MEDS: ATORVASTATIN 10 MG TAB PO SCH (22:58)
[2018-10-11 02:30] VITALS: BP 129/63; PULSE 85; RESP 18
[2018-10-11] MEDS: LEVOTHYROXINE 88 MCG TAB PO SCH (06:58)
[2018-10-11] MEDS: PANTOPRAZOLE 40 MG INJ IV SCH (06:58)
[2018-10-11] MEDS: traMADol 50 MG TAB PO PRN ×2 (07:04→15:20)
[2018-10-11 08:14] VITALS: BP 127/58; PULSE 77; RESP 18
[2018-10-11] MEDS: FLUTICASONE/VILANTEROL 100-25 INH SCH (09:20)
[2018-10-11] MEDS: NEOMYC/POLYMYX/BACIT 30 GM OINT TOP SCH (09:20)
[2018-10-11] MEDS: DOCUSATE SODIUM 10 MG/ML (10ML CUP) PO SCH (09:20)
[2018-10-11 14:38] VITALS: BP 116/58; PULSE 83; RESP 18
[2018-10-11] MEDS ORDERED: TRAM50TA2 PO (15:27)
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
== END 2018-10-11 18:00 | disposition home health service (06) | DRG 473 ==
LOC: REC 05:30 → MS1 17:45
PROVIDERS: ADMIT Neurological Surgery; ATTEND Neurological Surgery
PROC: 2W50X0Z Removal of Traction Apparatus on Head (ICD-10-PCS; 2018-10-05)
PROC: 0RG2071 Fusion of 2 or more Cervical Vertebral Joints with Autologous Tissue Substitute, Posterior Approach, Posterior Column, Open Approach (ICD-10-PCS; principal; 2018-10-05 07:30)
DX: S12.110A Anterior displaced Type II dens fracture, initial encounter for closed fracture (principal); S12.190A Other displaced fracture of second cervical vertebra, initial encounter for closed fracture; E03.9 Hypothyroidism, unspecified; E78.5 Hyperlipidemia, unspecified; J45.909 Unspecified asthma, uncomplicated
CPT/HCPCS: 71045; 72040; 80048; 80061; 81001; 82962; 85025; 86850; 86900; 86901; 87086; 97110; 97116; 97162; 97530; C1713; C9113; J0690; J1100; J1170; J1644; J2175; J2250; J2370; J2405; J2765; J3010; J3370; J3480; L0174